=== PATIENT | male | born 1975 | race Caucasian/White ===

== ENCOUNTER 2019-09-19 10:38 | Emergency (ER) | payer OTHER, SELFPAY ==
--- NOTE | ~2019-09-19 | CT_ITS ---
EXAMINATION: CT brain wo con DATE: 09/19/2019 11:19 INDICATION: Near syncope. TECHNIQUE: Computed tomography (CT) of the head was performed without intravenous contrast. The mA wa s adjusted according to patient size. Iterative reconstruction technique was employed. The dose-lengt h product was 605.33 mGy-cm. COMPARISON: None FINDINGS: There is no intracranial hemorrhage, acute infarction, or abnormal intracranial mass lesion . The ventricles are normal in size. The orbits are normal. There is mild mucosal thickening in the s phenoid sinus. The mastoid air cells are normal. IMPRESSION: 1. Normal brain. Reviewed, dictated and finalized at location A. IMPRESSION: 1. Normal brain.
--- NOTE | ~2019-09-19 | XR_ITS ---
EXAMINATION: XR chest 1V portable INDICATION: Dizziness TECHNIQUE: Portable AP chest at 1108 hours COMPARISON: None available FINDINGS: The lungs are free of acute opacities. There is no pleural effusion or pneumothorax. The ca rdiomediastinal silhouette is normal. Changes of cervical fusion procedure are noted. IMPRESSION: 1. No acute cardiopulmonary abnormality. Reviewed, dictated and finalized at location A.
[2019-09-19 10:43] VITALS: BP 183/114; PULSE 108; RESP 18; TEMP 36.9; O2SAT 100
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
[2019-09-19 11:01] VITALS: BP 130/96; BP 149/114; PULSE 106; PULSE 110
--- NOTE | 2019-09-19 11:02 | ECG_ITS ---
Measurements Intervals [place] Rate: 110 P: 53 MA: 128 QRS: 51 QRSD: 103 T: 40 QT: 320 QTc: 434 Interpretive Statements SINUS TACHYCARDIA INCOMPLETE RIGHT BUNDLE BRANCH BLOCK ABNORMAL ECG Electronically Signed On 09-19-2019 11:30:08 CDT by Luis Manuel Townsend D.O.
[2019-09-19 11:03] VITALS: BP 146/91; PULSE 117
[2019-09-19] MEDS: SODIUM CHLORIDE 0.9% IV 1,000 ML 999 ML IV CONT ×2 (11:05→12:27)
[2019-09-19 11:07] LABS: Basophils Absolute Auto 0.1 K/mm3 (0.0-0.1); Basophils Percent Auto 0.6 % (0.2-1.2); Eosinophils Absolute Auto 0.1 K/mm3 (0-0.3); Eosinophils Percent Auto 1.6 % (0-4.4); Hematocrit 48.9 % (42.0-52.0); Hemoglobin 17.1 g/dL (14.0-18.0); Immature Granulocyte Absolute 0.02 K/mm3 (0.00-0.031); Immature Granulocyte Percent A 0.2 % (0-0.5); Lymphocytes Absolute Auto 2.19 K/mm3 (0.9-3.2); Lymphocytes Percent Auto 24.5 % (18.3-44.2); Mean Corpuscular Hemoglobin 31.8 pg (26-34); Mean Corpuscular Volume 90.9 fl (80-100); Mean Platelet Volume 11.3 fl (7.4-10.4); Monocytes Absolute Auto 1.1 K/mm3 (0.1-0.6); Monocytes Percent Auto 11.7 % (2.6-8.5); Neutrophils Absolute Auto 5.5 K/mm3 (1.3-6.7); Neutrophils Percent Auto 61.4 % (45.5-73.1); Platelet Count Result 252 k/mm3 (150-375); Red Blood Count 5.38 M/mm3 (4.6-6.20); Red Cell Distribution Width 12.1 % (11.5-14.5)
[2019-09-19 11:15] LABS: Creatine Kinase 80 U/L (55-170); INR 0.9; Prothrombin Time 11.9 Seconds (11.1-14.7)
[2019-09-19 11:16] LABS: Partial Thromboplastin Time 28.6 SECONDS (22.3-36.8)
[2019-09-19 11:17] LABS: Alanine Aminotransferase 47 U/L (4-50); Alkaline Phosphatase 89 U/L (38-126); Aspartate Amino Transferase 38 U/L (17-59); Bilirubin,Total 0.7 mg/dL (0.2-1.3); Blood Urea Nitrogen 13 mg/dL (9-20); Calcium 10.3 mg/dL (8.4-10.2); Carbon Dioxide 26 mmol/L (22-30); Chloride 102 mmol/L (98-107); Estimated CRCL calculation 108 ml/min; Estimated Glomerular Filt Rate > 60; Glucose 94 mg/dL (75-110); Potassium 4.2 mmol/L (3.4-5.0); Sodium 137 mmol/L (137-145)
[2019-09-19 11:30] LABS: Troponin I < 0.012 ng/mL (0.000-0.034)
[2019-09-19 12:13] LABS: Add Urine Microscopic? YES; Appearance Urine Clear (Clear); Bilirubin Urine Negative (Negative); Blood Urine Negative (Negative); Color Urine Yellow (Yellow); Glucose Urine UA Negative (Negative); Ketones Urine Trace mg/dL (Negative); Leukocyte Esterase Ur Negative LEU/UL (Negative); Mucus Urine Rare /lpf; Nitrate Urine Negative (Negative); Protein Urine Negative (Negative); Urobilinogen Urine Negative mg/dL (<2.0); WBC Urine 0-3 /hpf
[2019-09-19 12:14] LABS: D Dimer < 0.22 ug/mL (<0.48)
[2019-09-19 12:26] VITALS: BP 140/97; PULSE 93; RESP 20; O2SAT 98
[2019-09-19 13:37] VITALS: BP 143/94; PULSE 92; RESP 22; O2SAT 99
[2019-09-19 14:42] LABS: Troponin I < 0.012 ng/mL (0.000-0.034)
[2019-09-19 15:16] VITALS: BP 168/98; PULSE 92; RESP 20; O2SAT 99
== END 2019-09-19 15:17 | disposition home or self-care (01) ==
PROVIDERS: Emergency Provider Emergency Medicine; PCP Physician Assistant
DX: R55 Syncope and collapse (principal); F17.200 Nicotine dependence, unspecified, uncomplicated; R00.0 Tachycardia, unspecified; I45.10 Unspecified right bundle-branch block
CPT/HCPCS: 36415; 70450; 71045; 80053; 81001; 82550; 84484; 85025; 85380; 85610; 85730; 93005; 96360; 96361; 99284; A9270; J7030

== ENCOUNTER 2024-03-05 17:37 | Emergency (ER) | payer OTHER, SELFPAY ==
--- NOTE | ~2024-03-05 | XR_ITS ---
XR foot LT min 3V Ordering provider: Osiris Christianson APRN History: . pain, injury . Comparison: 6) none. FINDINGS: BONES: No acute fracture or dislocation. Bony prominence is seen near to the base of the first metata rsal bone laterally with possibility of a fracture in the area. Clinical correlation for tenderness i s advised. JOINT SPACES: Normal. No tarsal coalition. SOFT TISSUES: Normal. IMPRESSION: Bony prominence is seen near to the base of the first metatarsal bone laterally with possibility of a fracture in the area. Clinical correlation for tenderness is advised. No other definite acute osseous abnormality left foot. Reviewed, dictated and finalized at location A. K ASSEMBLER IMPRESSION: Bony prominence is seen near to the base of the first metatarsal bone laterally with possibility of a fracture in the area. Clinical correlation for tendernes s is advised. No other definite acute osseous abnormality left foot.
[2024-03-05 17:44] VITALS: BP 149/100; PULSE 107; RESP 20; TEMP 36.9; O2SAT 100
--- NOTE | 2024-03-05 18:15 | ED.LOWEXIN ---
HPI - Extremity Injury (Lower) General Chief Complaint: Extremity Injury, Lower Stated Complaint: Left Foot Injury Source: patient Mode of arrival: ambulatory Limitations: no limitations History of Present Illness HPI Narrative: 49 y/o male presented for c/o left foot pain after injury this morning. He dropped a chair onto the foot. Continued to work and walk throughout the day but reports pain. Has not taken anything for pain. Denies deformity, swelling or bruising. Related Data Home Medications Medication Instructions Recorded Confirmed No Home Medications 03/05/24 03/05/24 Allergies Allergy/AdvReac Type Severity Reaction Status Date / Time tramadol Allergy Unknown Itching Verified 03/05/24 18:21 Review of Systems Review of Systems: CONSTITUTIONAL: Denies body aches, fever, chills CARDIOVASCULAR: Denies chest pain, palpitations, or edema. RESPIRATORY: Denies cough or dyspnea. SKIN: Denies rash, itching, or wounds. MUSCULOSKELETAL: left foot pain NEUROLOGIC: Denies headache, numbness, tingling, or weakness. All systems reviewed & are unremarkable except as noted in HPI and below PMFSH Past Medical History Medical History Patient denies significant medical history Social History Social History Smoking status: Light tobacco smoker Alcohol intake: current Gender identity (if verbalized by the patient): Male Comments At time of signature, I have reviewed and agree with nursing past medical, surgical, social and family history unless otherwise noted. Please see nursing chart for further information. There is no relevant family history pertinent to the presenting complaint Exam Narrative: GENERAL: Well-appearing CHEST: Speaks in full sentences. No respiratory distress. HEART: Regular rate and rhythm. Normal and equal peripheral pulses. EXTREMITIES: Left mid dry can tender with palpation. Foot has normal strength and sensation, normal range of motion but endorses pain to midfoot with movement. No apparent swelling or ecchymosis, No open wounds, or obvious deformity; alignment normal, pulse palpable and equal bilaterally, skin warm, dry, pink. Capillary refill less than 3 seconds. SKIN: Warm, dry, no rash. NEURO: Alert and oriented x3. PSYCH: Normal mood and affect Course Course Emergency Course: Patient is aware of diagnosis, understands and agrees to treatment plan. Anticipatory guidance given. Patient agrees to follow-up as directed and is aware of reasons to seek care at the emergency department. Portions of this record may have been created with voice recognition software Level of Care: Express Care Visit Vital Signs Vital signs: Vital Signs Temperature 98.5 F 03/05/24 17:44 Pulse Rate 107 H 03/05/24 17:44 Respiratory Rate 20 03/05/24 17:44 Blood Pressure 149/100 H 03/05/24 17:44 Pulse Oximetry 100 03/05/24 17:44 Oxygen Delivery Room Air 03/05/24 17:44 Temperature 98.5 F 03/05/24 17:44 Pulse Rate 107 H 03/05/24 17:44 Respiratory Rate 20 03/05/24 17:44 Blood Pressure 149/100 H 03/05/24 17:44 Pulse Oximetry 100 03/05/24 17:44 Oxygen Delivery Room Air 03/05/24 17:44 Reviewed MDM - Extremity Injury (Lower) MDM Narrative Medical decision making narrative: Discussed physical exam findings and Xray. Advised OCL and crutches vs walking boot. Pt is very active with his job, and elects to purchase a walking boot, stating he has crutches at home as well. . Advised supportive measures and signs/symptoms to go to the ER. Pt is appropriate for outpt treatment and f/u. 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 pain, injury . Comparison: 6) none. FINDINGS: BONES: No acute fracture or dislocation. Bony prominence is seen near to the base of the first metatarsal bone laterally with possibility of a fracture in the area. Clinical correlation for tenderness is advised. JOINT SPACES: Normal. No tarsal coalition. SOFT TISSUES: Normal. IMPRESSION: Bony prominence is seen near to the base of the first metatarsal bone laterally with possibility of a fracture in the area. Clinical correlation for tenderness is advised. No other definite acute osseous abnormality left foot. Discharge Plan Discharge Clinical Impression: Acute pain of left foot Patient Disposition: Home, Self-Care Condition: Stable Instructions: Foot Fracture in Adults (ED) Additional Instructions: Rest, ice and elevate the left leg Recommend purchasing the walking boot as discussed. Meanwhile, avoid weight bearing. Use the crutches you have at home. Motrin 800mg every 8 hours, as needed, for pain (take with food). Tylenol 1000mg every 8 hours. Go to the ER immediately for increased pain, tingling/numbness, swelling, redness, etc Follow up with Orthopedic Surgery in 1-2 days for further evaluation - please call today for an appointment. Prescriptions: No Action No Home Medications Follow-up/Referrals: PHYSICIAN,ELECTRICAL CONTACTS ADJUSTER [Primary Care Provider] - Mio Gordon MD [Physician] - Stand Alone Forms: Work/School Release IP Time of Disposition: 18:59
== END 2024-03-05 19:00 | disposition home or self-care (01) ==
PROVIDERS: Emergency Provider Nurse Practitioner Family
DX: M79.672 Pain in left foot (principal); F17.290 Nicotine dependence, other tobacco product, uncomplicated
CPT/HCPCS: 73630; 99213; G0463